=== PATIENT | male | born 1995 | race Native Hawaiian/Other Pacific Islander ===

== ENCOUNTER 2025-06-02 20:44 | Emergency (ER) | payer OTHER, SELFPAY ==
[2025-06-02 21:06] VITALS: BP 137/87; PULSE 64; RESP 17; TEMP 36.6; O2SAT 97; BMI 26.6
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
[2025-06-03] MEDS: NAPROXEN 250 MG TABLET 500 MG PO (02:12)
[2025-06-03 04:15] VITALS: BP 134/86; PULSE 64; RESP 16; O2SAT 100
== END 2025-06-03 04:25 | disposition home or self-care (01) ==
PROVIDERS: Emergency Provider Emergency Medicine
DX: S16.1XXA Strain of muscle, fascia and tendon at neck level, initial encounter (principal); S29.012A Strain of muscle and tendon of back wall of thorax, initial encounter; V89.2XXA Person injured in unspecified motor-vehicle accident, traffic, initial encounter
CPT/HCPCS: 72125; 72128; 72131; 99283; 99284